=== PATIENT | male | born 1955 | race Caucasian/White ===

== ENCOUNTER → 2021-02-20 | Outpatient (CLI) | payer BC | LOC: VAS 13:13 | DX: I25.10 Atherosclerotic heart disease of native coronary artery without angina pectoris (principal); Z87.891 Personal history of nicotine dependence ==

== ENCOUNTER → 2024-05-26 | Outpatient (RCR) | payer MEDICARE | END | disposition home or self-care (01) | LOC: PT | DX: G20.A1 Parkinson's disease without dyskinesia, without mention of fluctuations (principal); M48.02 Spinal stenosis, cervical region ==